=== PATIENT | female | born 1965 | race Caucasian/White ===

== ENCOUNTER 2019-02-02 13:02 | Emergency (ER) | payer MEDICARE ==
--- NOTE | 2019-02-02 13:27 | ERPHSYRPT ---
- History of Present Illness Time Seen by Provider: 02/02/19 13:26 Historian: patient Exam Limitations: no limitations Patient Subjective Stated Complaint: pt here for n/v off and on since 2018. and then thursday started with chills, runny nose, cough,aches Triage Nursing Assessment: pt alert, walked in, resp easy, chest with wheezes to upper lobes. no edema noted, she states she is drinking but not eating Physician History: Pt comes in with a history of nausea that started the night before Pt is breathless with talking and has felt wheezy. Pt has no similar medical history. Thanksgiving followed by vomiting for a few days but pt notes that she was better for a dy on Thursday then she began to cough and has gradually progressed to being short of breath. Timing/Duration: day(s) (5) Activities at Onset: activity Abdominal Pain Onset Location: other (improved but breathing more difficult) Modifying Factors: Improves With: movement, vomiting Associated Symptoms: shortness of breath Previous symptoms: no prior history Allergies/Adverse Reactions: aspirin Allergy (Verified 02/02/19 13:20) Home Medications: Cetirizine HCl 10 mg DAILY 02/02/19 [History] Topiramate 50 mg DAILY 02/02/19 [History] Umeclidinium Brm/Vilanterol Tr [Anoro Ellipta 62.5-25 Mcg INH] 1 ea DAILY [History] Hx Influenza Vaccination/Date Given: Yes Hx Pneumococcal Vaccination/Date Given: Yes - Review of Systems Constitutional: Fatigue, Malaise, Weakness Eyes: No Symptoms Ears, Nose, & Throat: No Symptoms Respiratory: Cough, Dyspnea, Wheezing Cardiac: Other (heaviness) Abdominal/Gastrointestinal: Vomiting (3-7 days ago) Genitourinary Symptoms: No Symptoms Musculoskeletal: No Symptoms Skin: No Symptoms Neurological: Dizziness Psychological: No Symptoms Endocrine: No Symptoms All Other Systems: Reviewed and Negative - Past Medical History Pertinent Past Medical History: Yes Neurological History: Migraines, Other Cardiac History: No Pertinent History Respiratory History: Asthma Endocrine Medical History: Other Musculoskeletal History: Degenerative Disk Disease, Fibromyalgia, Osteoarthritis , Rheumatoid Arthritis, Other GI Medical History: GERD Other Medical History: huntingtons disease,raynuds sydrome - Past Surgical History Past Surgical History: Yes Gastrointestinal: Appendectomy, Cholecystectomy - Social History Smoking Status: Former smoker Exposure to second hand smoke: Yes Drug Use: cocaine Patient Lives Alone: No - Female History Hx Last Menstrual Period: psot Hx Now: No - Nursing Vital Signs Nursing Vital Signs: Initial Vital Signs Temperature 98.0 F 02/02/19 13:07 Pulse Rate 97 H 02/02/19 13:07 Respiratory Rate 16 02/02/19 13:07 Blood Pressure 99/75 02/02/19 13:07 O2 Sat by Pulse Oximetry 96 02/02/19 13:07 Pain Scale Pain Intensity 0 - Physical Exam General Appearance: mild distress (breathless with ), alert Eye Exam: PERRL/EOMI Ears, Nose, Throat Exam: normal ENT inspection Neck Exam: normal inspection Respiratory Exam: diminished breath sounds, wheezing, No crackles/rales Cardiovascular Exam: regular rate/rhythm, normal heart sounds, normal peripheral pulses, No murmur Gastrointestinal/Abdomen Exam: soft, normal bowel sounds, No tenderness Pelvic Exam: not done Rectal Exam: not done Back Exam: normal inspection Extremity Exam: normal inspection, No pedal edema, No tenderness Neurologic Exam: alert, oriented x 3, cooperative, 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 nml as tested, normal mood/affect, sensation nml, No motor deficits Skin Exam: normal color, warm, dry SpO2: 96 O2 Delivery: Room Air - Course EKG Interpreted by Me: RATE (75), Sinus Rhythm, NORMAL AXIS, Non-specific ST Changes Ordered Tests: Active Orders 24 hr Category Date Time Status EKG-ER Only STAT Care 02/02/19 14:08 Active CHEST 2 VIEWS (PA AND LAT) Stat Exams 02/02/19 14:08 Completed BLOOD CULTURE Stat Lab 02/02/19 14:35 Received CBC W DIFF Stat Lab 02/02/19 14:25 Completed CMP Stat Lab 02/02/19 14:25 Completed D-DIMER QUANTITATION Stat Lab 02/02/19 14:10 Completed Lactic Acid Stat Lab 02/02/19 14:32 Completed TROPONIN Q3H Lab 02/02/19 14:10 Completed Peak Expiratory Flow Rate ONCE RT 02/02/19 14:08 Active Respiratory Therapy Assessment DAILY RT 02/02/19 14:20 Active Medication Summary Discontinued Medications Generic Name Dose Route Start Last Admin Trade Name Freq PRN Reason Stop Dose Admin Albuterol/Ipratropium 3 ml 02/02/19 14:08 02/02/19 14:17 Duoneb 0.5-3 Mg/3 Ml Neb IH 02/02/19 14:09 3 ml STAT ONE Administration Albuterol/Ipratropium Confirm 02/02/19 14:16 Duoneb 0.5-3 Mg/3 Ml Neb Administered 02/02/19 14:17 Dose 3 ml IH .STK-MED ONE Ondansetron HCl 4 mg 02/02/19 14:08 02/02/19 14:48 Zofran 4 Mg/2 Ml Vial IV 02/02/19 14:09 4 mg STAT ONE Administration Ondansetron HCl Confirm 02/02/19 14:32 Zofran 4 Mg/2 Ml Vial Administered 02/02/19 14:33 Dose 4 mg .ROUTE .STK-MED ONE Lab/Rad Data: Laboratory Result Diagrams 02/02/19 14:25 02/02/19 14:25 Laboratory Results 02/02/19 02/02/19 02/02/19 Range/Units 14:35 14:32 14:25 WBC (4.0-10.5) K/mm3 RBC (4.1-5.4) M/mm3 Hgb (12.0-16.0) gm/dl Hct (35-47) % MCV (78-100) fl MCH (26-32) pg MCHC (32-36) g/dl RDW (11.5-14.0) % Plt Count (150-450) K/mm3 MPV (6-9.5) fl Gran % (36.0-66.0) % Eos # (Auto) (0-0.5) Absolute Lymphs (auto) (1.0-4.6) Absolute Monos (auto) (0.0-1.3) Lymphocytes % (24.0-44.0) % Monocytes % (0.0-12.0) % Eosinophils % (0.00-5.0) % Basophils % (0.0-0.4) % Absolute Granulocytes (1.4-6.9) Basophils # (0-0.4) D-Dimer (215-500) ng/mL Sodium 142 (137-145) mmol/L Potassium 4.4 (3.5-5.1) mmol/L Chloride 105 (98-107) mmol/L Carbon Dioxide 26 (22-30) mmol/L Anion Gap 14.9 (5-15) MEQ/L BUN 12 (7-17) mg/dL Creatinine 0.79 (0.52-1.04) mg/dL Estimated GFR > 60.0 ML/MIN Glucose 92 (74-106) mg/dL Lactic Acid 1.2 (0.4-2.0) Calcium 9.8 (8.4-10.2) mg/dL Total Bilirubin 0.50 (0.2-1.3) mg/dL AST 27 (14-36) U/L ALT 19 (0-35) U/L Alkaline Phosphatase 126 (38-126) U/L Troponin I (0.000-0.034) ng/mL Serum Total Protein 7.7 (6.3-8.2) g/dL Albumin 4.4 (3.5-5.0) g/dL Influenza Type A Ag NEGATIVE (NEGATIVE) Influenza Type B Ag NEGATIVE (NEGATIVE) RSV (PCR) NEGATIVE (Negative) 02/02/19 02/02/19 02/02/19 Range/Units 14:25 14:10 14:10 WBC 6.6 (4.0-10.5) K/mm3 RBC 4.51 (4.1-5.4) M/mm3 Hgb 13.7 (12.0-16.0) gm/dl Hct 41.7 (35-47) % MCV 92.5 (78-100) fl MCH 30.4 (26-32) pg MCHC 32.9 (32-36) g/dl RDW 12.8 (11.5-14.0) % Plt Count 287 (150-450) K/mm3 MPV 9.4 (6-9.5) fl Gran % 58.6 (36.0-66.0) % Eos # (Auto) 0.25 (0-0.5) Absolute Lymphs (auto) 2.01 (1.0-4.6) Absolute Monos (auto) 0.42 (0.0-1.3) Lymphocytes % 30.7 (24.0-44.0) % Monocytes % 6.4 (0.0-12.0) % Eosinophils % 3.8 (0.00-5.0) % Basophils % 0.5 (0.0-0.4) % Absolute Granulocytes 3.84 (1.4-6.9) Basophils # 0.03 (0-0.4) D-Dimer 308 (215-500) ng/mL Sodium (137-145) mmol/L Potassium (3.5-5.1) mmol/L Chloride (98-107) mmol/L Carbon Dioxide (22-30) mmol/L Anion Gap (5-15) MEQ/L BUN (7-17) mg/dL Creatinine (0.52-1.04) mg/dL Estimated GFR ML/MIN Glucose (74-106) mg/dL Lactic Acid (0.4-2.0) Calcium (8.4-10.2) mg/dL Total Bilirubin (0.2-1.3) mg/dL AST (14-36) U/L ALT (0-35) U/L Alkaline Phosphatase (38-126) U/L Troponin I < 0.012 (0.000-0.034) ng/mL Serum Total Protein (6.3-8.2) g/dL Albumin (3.5-5.0) g/dL Influenza Type A Ag (NEGATIVE) Influenza Type B Ag (NEGATIVE) RSV (PCR) (Negative) - Departure Departure Disposition: Home Clinical Impression: Bronchospasm with bronchitis, acute Condition: Fair Critical Care Time: No Referrals: MARIA M EL NP [Primary Care Provider] - Instructions: Nausea -- Adult Additional Instructions: Pt short of breath with bronchitis, and bronchitis. Pt will be given zithromax, prednisone, and inhaler. Pt improved with duoneb while here. Pt did not receive her appropriate instructions as her instructions wre initially written on a wrong chart. That was corrected and I have attempted to call this pt at [phone]. Pt did not answer and did not have voicemail set up. Will have nursing try again. Prescriptions: Azithromycin 250 mg [Zithromax 250 MG TABLET] 250 mg PO ZPACK #6 tablet Budesonide/Formoterol Fumarate [Symbicort 80-4.5 Mcg Inhaler] 10.2 gm IH BID 10 Days #1 [email or web address] Prednisone 20 mg [Deltasone 20 mg] 20 mg PO DAILY 10 Days #11 tablet
[2019-02-02] MEDS ORDERED: DUONEB 0.5-3 MG/3 ml Neb IH ONE ×2 (14:08→14:16)
[2019-02-02] MEDS ORDERED: Zofran 4 MG/2 ML VIAL IV ONE (14:08)
[2019-02-02] MEDS ORDERED: Zofran 4 MG/2 ML VIAL ONE (14:32)
[2019-02-02 14:51] LABS: Absolute Neutrophil Ct (ANC) 3.84 (1.4-6.9); BASOPHIL % 0.5 % (0.0-0.4); Basophil (Absolute #) 0.03 (0-0.4); Eosinophil % 3.8 % (0.00-5.0); Eosinophil (Absolute #) 0.25 (0-0.5); Hematocrit 41.7 % (35-47); Hemoglobin 13.7 gm/dl (12.0-16.0); Lymphocyte (Absolute #) 2.01 (1.0-4.6); Lymphocytes % 30.7 % (24.0-44.0); Mean Cell Volume 92.5 fl (78-100); Mean Corpuscular Hemoglobin 30.4 pg (26-32); Mean Corpuscular Hgb Concent. 32.9 g/dl (32-36); Mean Platelet Volume 9.4 fl (6-9.5); Monocyte (Absolute #) 0.42 (0.0-1.3); Monocytes % 6.4 % (0.0-12.0); Neutrophil % 58.6 % (36.0-66.0); Platelet Count 287 K/mm3 (150-450); Red Blood Count 4.51 M/mm3 (4.1-5.4); Red Cell Distribution Width 12.8 % (11.5-14.0); White Blood Count 6.6 K/mm3 (4.0-10.5)
--- NOTE | 2019-02-02 14:57 | XRAY ---
Indication: Short of breath and congestion. Comparison: None PA/lateral chest demonstrates normal heart and lungs. Bony thorax intact.
[2019-02-02 15:01] LABS: ALBUMIN 4.4 g/dL (3.5-5.0); ALKALINE PHOSPHATASE 126 U/L (38-126); ANION GAP 14.9 MEQ/L (5-15); BLOOD UREA NITROGEN 12 mg/dL (7-17); CHLORIDE 105 mmol/L (98-107); Calcium 9.8 mg/dL (8.4-10.2); Carbon Dioxide 26 mmol/L (22-30); Creatinine 1 0.79 mg/dL (0.52-1.04); Glucose 92 mg/dL (74-106); Potassium 4.4 mmol/L (3.5-5.1); SGOT/AST 27 U/L (14-36); SGPT/ALT 19 U/L (0-35); SODIUM 142 mmol/L (137-145); Total Protein 7.7 g/dL (6.3-8.2)
[2019-02-02 15:28] LABS: INFLUENZA A NEGATIVE (NEGATIVE); INFLUENZA B NEGATIVE (NEGATIVE); RESPIRATORY SYNCTIAL VIRUS NEGATIVE (Negative)
[2019-02-02 18:22] VITALS: BP 105/93; PULSE 72
[2019-02-02 19:52] VITALS: O2SAT 96
== END 2019-02-02 18:51 | disposition home or self-care (01) ==
LOC: ED 13:02
DX: J20.9 Acute bronchitis, unspecified (principal); R11.2 Nausea with vomiting, unspecified; R05 Cough; R09.89 Other specified symptoms and signs involving the circulatory and respiratory systems; R06.02 Shortness of breath; Z79.899 Other long term (current) drug therapy; R53.83 Other fatigue
CPT/HCPCS: 36415; 71046; 80053; 83605; 84484; 85025; 85379; 87040; 87631; 93005; 94150; 94640; 96374; 99284; J2405; A9270-GY

== ENCOUNTER 2019-02-09 09:50 | Emergency (ER) | payer MEDICARE ==
[2019-02-09] MEDS ORDERED: Zofran 4 MG/2 ML VIAL IV ONE (10:28)
[2019-02-09] MEDS ORDERED: Sodium Chloride 0.9% 1000 ML 1,000 ML IV STA ×2 (10:28→11:51)
[2019-02-09] MEDS ORDERED: Zofran 4 MG/2 ML VIAL ONE (10:36)
[2019-02-09] MEDS ORDERED: Sodium Chloride 0.9% 1000 ML 1,000 ML ONE ×2 (10:36→11:56)
--- NOTE | 2019-02-09 10:38 | ERPHSYRPT ---
- History of Present Illness Time Seen by Provider: 02/09/19 10:05 Historian: patient, family Exam Limitations: no limitations Patient Subjective Stated Complaint: N&V, diarrhea that began during the night Triage Nursing Assessment: Pt walked into the ER, vitals wnl, N&V, diarrhea, bowel sounds heard in all 4 quadrants, bilateral lungs wheezy, rates pain 7/10, last intake was last night, at this ER last Thursday for pnuemonia, just finished Z-pack Physician History: 53 y/o white female presents with n/v/d since late last pm. pt was seen here in this ED on 02/02/19. pt was dx with bronchitis and given rx for zpack, symbicort , and prednisone. pt has h/o chronic recurring n/v. pt lives in a home for recovering women addicts. pt was abusing cocaine. pt has h/o asthma, huntingtons dz and raynauds syndrome. pt has had an appendectomy and cholecystectomy in the past. pt had recent negative viral studies. pt still has occasional cough and wheezing. Timing/Duration: yesterday, worse Quality: cramping Abdominal Pain Onset Location: generalized abdomen Pain Radiation: no radiation Severity of Pain-Max: mild Severity of Pain-Current: mild Associated Symptoms: diarrhea, loss of appetite, nausea, vomiting Previous symptoms: same symptoms as today Allergies/Adverse Reactions: aspirin Allergy (Verified 02/09/19 10:16) Home Medications: Cetirizine HCl 10 mg DAILY 02/02/19 [History] Umeclidinium Brm/Vilanterol Tr [Anoro Ellipta 62.5-25 Mcg INH] 1 ea DAILY [History] Duloxetine HCl [Cymbalta] 60 mg PO DAILY 02/09/19 [History] Omeprazole 40 mg PO DAILY 02/09/19 [History] Hx Influenza Vaccination/Date Given: Yes Hx Pneumococcal Vaccination/Date Given: Yes - Review of Systems Constitutional: No Symptoms Eyes: No Symptoms Ears, Nose, & Throat: No Symptoms Respiratory: No Symptoms Cardiac: No Symptoms Abdominal/Gastrointestinal: Nausea, Vomiting, Diarrhea Genitourinary Symptoms: No Symptoms Musculoskeletal: No Symptoms Skin: No Symptoms Neurological: No Symptoms Psychological: No Symptoms Endocrine: No Symptoms Hematologic/Lymphatic: No Symptoms Immunological/Allergic: No Symptoms All Other Systems: Reviewed and Negative - Past Medical History Pertinent Past Medical History: Yes Neurological History: Migraines, Other Cardiac History: No Pertinent History Respiratory History: Asthma, Pneumonia Endocrine Medical History: Other Musculoskeletal History: Degenerative Disk Disease, Fibromyalgia, Osteoarthritis , Rheumatoid Arthritis, Other GI Medical History: GERD Other Medical History: huntingtons disease,raynuds sydrome - Past Surgical History Past Surgical History: Yes Gastrointestinal: Appendectomy, Cholecystectomy - Social History Smoking Status: Former smoker Exposure to second hand smoke: No Drug Use: none Patient Lives Alone: No - Female History Hx Now: No - Nursing Vital Signs Nursing Vital Signs: Initial Vital Signs Temperature 98.9 F 02/09/19 10:04 Pulse Rate 90 02/09/19 10:04 Blood Pressure 116/80 02/09/19 10:04 O2 Sat by Pulse Oximetry 97 02/09/19 10:04 Pain Scale Pain Intensity 6 - Physical Exam General Appearance: mild distress, alert, anxiety Eye Exam: PERRL/EOMI, eyes nml inspection Ears, Nose, Throat Exam: normal ENT inspection, moist mucous membranes Neck Exam: normal inspection, non-tender, supple, full range of motion Respiratory Exam: lungs clear, airway intact, wheezing (mild bilat), No chest tenderness, No respiratory distress Cardiovascular Exam: regular rate/rhythm, normal heart sounds, normal peripheral pulses Gastrointestinal/Abdomen Exam: soft, normal bowel sounds, tenderness Pelvic Exam: not done Rectal Exam: not done Back Exam: normal inspection, normal range of motion, No CVA tenderness, No vertebral tenderness Extremity Exam: normal inspection, normal range of motion, pelvis stable Neurologic Exam: alert, oriented x 3, cooperative, energy advisor II-XII nml as tested Skin Exam: normal color, warm, dry Lymphatic Exam: No adenopathy SpO2 Interpretation: normal SpO2: 97 O2 Delivery: Room Air - Course Nursing assessment & vital signs reviewed: Yes Ordered Tests: Active Orders 24 hr Category Date Time Status IV Insertion STAT Care 02/09/19 10:28 Active AMYLASE Stat Lab 02/09/19 10:44 Completed CBC W DIFF Stat Lab 02/09/19 10:44 Completed CMP Stat Lab 02/09/19 10:44 Completed CULTURE,URINE Stat Lab 02/09/19 12:30 Received LIPASE Stat Lab 02/09/19 10:44 Completed Lactic Acid Stat Lab 02/09/19 10:42 Completed UA W/RFX UR CULTURE Stat Lab 02/09/19 12:30 Completed Medication Summary Discontinued Medications Generic Name Dose Route Start Last Admin Trade Name Boo PRN Reason Stop Dose Admin Sodium Chloride 1,000 mls @ 999 mls/hr 02/09/19 10:28 02/09/19 11:39 Sodium Chloride 0.9% 1000 Ml IV 02/09/19 11:28 Infused .Q1H1M STA Infusion Sodium Chloride Confirm 02/09/19 10:36 Sodium Chloride 0.9% 1000 Ml Administered 02/09/19 10:37 Dose 1,000 mls @ ud .ROUTE .STK-MED ONE Sodium Chloride 1,000 mls @ 999 mls/hr 02/09/19 11:51 02/09/19 12:58 Sodium Chloride 0.9% 1000 Ml IV 02/09/19 12:51 Infused .Q1H1M STA Infusion Sodium Chloride Confirm 02/09/19 11:56 Sodium Chloride 0.9% 1000 Ml Administered 02/09/19 11:57 Dose 1,000 mls @ ud .ROUTE .STK-MED ONE Ondansetron HCl 4 mg 02/09/19 10:28 02/09/19 10:38 Zofran 4 Mg/2 Ml Vial IV 02/09/19 10:29 4 mg STAT ONE Administration Ondansetron HCl Confirm 02/09/19 10:36 Zofran 4 Mg/2 Ml Vial Administered 02/09/19 10:37 Dose 4 mg .ROUTE .STK-MED ONE Lab/Rad Data: Laboratory Result Diagrams 02/09/19 10:44 02/09/19 10:44 Laboratory Results 02/09/19 02/09/19 02/09/19 Range/Units 12:30 10:44 10:44 WBC 6.4 (4.0-10.5) K/mm3 RBC 4.81 (4.1-5.4) M/mm3 Hgb 14.6 (12.0-16.0) gm/dl Hct 44.2 (35-47) % MCV 91.9 (78-100) fl MCH 30.4 (26-32) pg MCHC 33.0 (32-36) g/dl RDW 13.0 (11.5-14.0) % Plt Count 272 (150-450) K/mm3 MPV 9.3 (6-9.5) fl Gran % 73.6 H (36.0-66.0) % Eos # (Auto) 0.17 (0-0.5) Absolute Lymphs (auto) 1.04 (1.0-4.6) Absolute Monos (auto) 0.44 (0.0-1.3) Lymphocytes % 16.3 L (24.0-44.0) % Monocytes % 6.9 (0.0-12.0) % Eosinophils % 2.7 (0.00-5.0) % Basophils % 0.5 (0.0-0.4) % Absolute Granulocytes 4.71 (1.4-6.9) Basophils # 0.03 (0-0.4) Sodium 139 (137-145) mmol/L Potassium 4.7 (3.5-5.1) mmol/L Chloride 104 (98-107) mmol/L Carbon Dioxide 27 (22-30) mmol/L Anion Gap 12.4 (5-15) MEQ/L BUN 12 (7-17) mg/dL Creatinine 0.83 (0.52-1.04) mg/dL Estimated GFR > 60.0 ML/MIN Glucose 104 (74-106) mg/dL Lactic Acid (0.4-2.0) Calcium 9.3 (8.4-10.2) mg/dL Total Bilirubin 0.80 (0.2-1.3) mg/dL AST 31 (14-36) U/L ALT 21 (0-35) U/L Alkaline Phosphatase 140 H (38-126) U/L Serum Total Protein 7.9 (6.3-8.2) g/dL Albumin 4.4 (3.5-5.0) g/dL Amylase 54 (30-110) U/L Lipase 32 (23-300) U/L Urine Color STRAW (YELLOW) Urine Appearance SLIGHTLY CLOUDY (CLEAR) Urine pH 6.0 (5-6) Ur Specific [place] 1.003 (1.005-1.025) Urine Protein NEGATIVE (Negative) Urine Ketones NEGATIVE (NEGATIVE) Urine Blood SMALL (0-5) Clive/ul Urine Nitrite NEGATIVE (NEGATIVE) Urine Bilirubin NEGATIVE (NEGATIVE) Urine Urobilinogen NEGATIVE (0-1) mg/dL Ur Leukocyte Esterase TRACE (NEGATIVE) Urine WBC (Auto) 6-10 (0-5) /HPF Urine RBC (Auto) 3-5 (0-2) /HPF U Epithel Cells (Auto) NONE (FEW) /HPF Urine Bacteria (Auto) MODERATE (NEGATIVE) /HPF Urine Culture Reflexed YES (NO) Urine Glucose NEGATIVE (NEGATIVE) mg/dL 02/09/19 Range/Units 10:42 WBC (4.0-10.5) K/mm3 RBC (4.1-5.4) M/mm3 Hgb (12.0-16.0) gm/dl Hct (35-47) % MCV (78-100) fl MCH (26-32) pg MCHC (32-36) g/dl RDW (11.5-14.0) % Plt Count (150-450) K/mm3 MPV (6-9.5) fl Gran % (36.0-66.0) % Eos # (Auto) (0-0.5) Absolute Lymphs (auto) (1.0-4.6) Absolute Monos (auto) (0.0-1.3) Lymphocytes % (24.0-44.0) % Monocytes % (0.0-12.0) % Eosinophils % (0.00-5.0) % Basophils % (0.0-0.4) % Absolute Granulocytes (1.4-6.9) Basophils # (0-0.4) Sodium (137-145) mmol/L Potassium (3.5-5.1) mmol/L Chloride (98-107) mmol/L Carbon Dioxide (22-30) mmol/L Anion Gap (5-15) MEQ/L BUN (7-17) mg/dL Creatinine (0.52-1.04) mg/dL Estimated GFR ML/MIN Glucose (74-106) mg/dL Lactic Acid 1.1 (0.4-2.0) Calcium (8.4-10.2) mg/dL Total Bilirubin (0.2-1.3) mg/dL AST (14-36) U/L ALT (0-35) U/L Alkaline Phosphatase (38-126) U/L Serum Total Protein (6.3-8.2) g/dL Albumin (3.5-5.0) g/dL Amylase (30-110) U/L Lipase (23-300) U/L Urine Color (YELLOW) Urine Appearance (CLEAR) Urine pH (5-6) Ur Specific [place] (1.005-1.025) Urine Protein (Negative) Urine Ketones (NEGATIVE) Urine Blood (0-5) Clive/ul Urine Nitrite (NEGATIVE) Urine Bilirubin (NEGATIVE) Urine Urobilinogen (0-1) mg/dL Ur Leukocyte Esterase (NEGATIVE) Urine WBC (Auto) (0-5) /HPF Urine RBC (Auto) (0-2) /HPF U Epithel Cells (Auto) (FEW) /HPF Urine Bacteria (Auto) (NEGATIVE) /HPF Urine Culture Reflexed (NO) Urine Glucose (NEGATIVE) mg/dL - Progress Progress: improved, re-examined Counseled pt/family regarding: lab results, diagnosis, need for follow-up - Departure Departure Disposition: Home Clinical Impression: Vomiting and diarrhea, UTI (urinary tract infection) Condition: Stable Critical Care Time: No Referrals: MARIA M EL SHAKE TABLE OPERATOR [Primary Care Provider] - Additional Instructions: drink plenty of fluids. follow up with primary doctor for further management Prescriptions: Ciprofloxacin [Cipro 500 MG] 500 mg PO BID #14 tablet Metronidazole 500 mg [Flagyl 500 MG] 500 mg PO TID #21 tablet Ondansetron HCl [Zofran] 4 mg PO TID PRN #10 tablet PRN Reason: Nausea/Vomiting
[2019-02-09 10:48] LABS: Absolute Neutrophil Ct (ANC) 4.71 (1.4-6.9); BASOPHIL % 0.5 % (0.0-0.4); Basophil (Absolute #) 0.03 (0-0.4); Eosinophil % 2.7 % (0.00-5.0); Eosinophil (Absolute #) 0.17 (0-0.5); Hematocrit 44.2 % (35-47); Hemoglobin 14.6 gm/dl (12.0-16.0); Lymphocyte (Absolute #) 1.04 (1.0-4.6); Lymphocytes % 16.3 % (24.0-44.0); Mean Cell Volume 91.9 fl (78-100); Mean Corpuscular Hemoglobin 30.4 pg (26-32); Mean Platelet Volume 9.3 fl (6-9.5); Monocyte (Absolute #) 0.44 (0.0-1.3); Monocytes % 6.9 % (0.0-12.0); Neutrophil % 73.6 % (36.0-66.0); Platelet Count 272 K/mm3 (150-450); Red Blood Count 4.81 M/mm3 (4.1-5.4); White Blood Count 6.4 K/mm3 (4.0-10.5)
[2019-02-09 10:59] LABS: ALBUMIN 4.4 g/dL (3.5-5.0); ALKALINE PHOSPHATASE 140 U/L (38-126); AMYLASE 54 U/L (30-110); ANION GAP 12.4 MEQ/L (5-15); BLOOD UREA NITROGEN 12 mg/dL (7-17); CHLORIDE 104 mmol/L (98-107); Calcium 9.3 mg/dL (8.4-10.2); Carbon Dioxide 27 mmol/L (22-30); Creatinine 1 0.83 mg/dL (0.52-1.04); Glucose 104 mg/dL (74-106); LIPASE 32 U/L (23-300); Potassium 4.7 mmol/L (3.5-5.1); SGOT/AST 31 U/L (14-36); SGPT/ALT 21 U/L (0-35); SODIUM 139 mmol/L (137-145); Total Protein 7.9 g/dL (6.3-8.2)
[2019-02-09 12:46] VITALS: BP 150/93
[2019-02-09 12:55] LABS: Appearance SLIGHTLY CLOUDY (CLEAR); Bacteria MODERATE /HPF (NEGATIVE); Bilirubin NEGATIVE (NEGATIVE); Blood SMALL Ery/ul (0-5); Glucose NEGATIVE (NEGATIVE); Ketones NEGATIVE (NEGATIVE); Leukocyte Esterase TRACE (NEGATIVE); Nitrite NEGATIVE (NEGATIVE); Protein,Urine Dip NEGATIVE (Negative); Specific Gravity 1.003 (1.005-1.025); Urobilinogen NEGATIVE mg/dL (0-1)
[2019-02-09 13:00] VITALS: PULSE 85
[2019-02-09 13:24] VITALS: O2SAT 97
[2019-02-09] MEDS ORDERED: DIFLUCAN PO ONE (13:24)
[2019-02-09] MEDS ORDERED: Cipro 500 MG PO ONE (13:25)
[2019-02-09] MEDS ORDERED: Flagyl 500 MG PO ONE (13:26)
[2019-02-09] MEDS ORDERED: Cipro 500 MG ONE (13:34)
[2019-02-09] MEDS ORDERED: Flagyl 500 MG ONE (13:34)
[2019-02-09 20:01] LABS: Adenovirus F 40/41 NEGATIVE (NEGATIVE); Astrovirus NEGATIVE (NEGATIVE); C. Difficile Organism NEGATIVE (NEGATIVE); Campylobacter NEGATIVE (NEGATIVE); Cryptosporidium NEGATIVE (NEGATIVE); Cyclospora cayentanensis NEGATIVE (NEGATIVE); Entamoeaba histolytica NEGATIVE (NEGATIVE); Enteroaggregative E.coli NEGATIVE (NEGATIVE); Enteropathogenic E.coli NEGATIVE (NEGATIVE); Enterotoxigenic E.coli NEGATIVE (NEGATIVE); Giardia lamblia NEGATIVE (NEGATIVE); Norovirus GI/GII NEGATIVE (NEGATIVE); Plesiomonas shigelloides NEGATIVE (NEGATIVE); Rotavirus A NEGATIVE (NEGATIVE); Salmonella NEGATIVE (NEGATIVE); Sapovirus NEGATIVE (NEGATIVE); Shiga-like toxin prod.E.coli NEGATIVE (NEGATIVE); Vibrio NEGATIVE (NEGATIVE); Vibrio cholerae NEGATIVE (NEGATIVE); Yersinia enterocolitica NEGATIVE (NEGATIVE)
== END 2019-02-09 14:03 | disposition home or self-care (01) ==
LOC: ED 09:50
DX: R11.10 Vomiting, unspecified (principal); R19.7 Diarrhea, unspecified; N39.0 Urinary tract infection, site not specified
CPT/HCPCS: 36000; 36415; 80053; 81001; 82150; 83605; 83690; 85025; 87086; 87507; 96360; 96374; 99284; J2405; A9270-GY